=== PATIENT | female | born 1990 | race Caucasian/White ===

== ENCOUNTER → 2019-12-07 11:54 | Outpatient (CLI) | payer BC, MEDICAID, SELFPAY ==
[2019-12-07 12:19] LABS: Basophils % 0.4 % (0.1-2.0); Eosinophils # 0.2 K/mm3 (0.0-0.4); Eosinophils % 2.5 % (0.1-12.0); Hematocrit 34.6 % (37.0-47.0); Hemoglobin 10.3 g/dL (12.2-16.2); Lymphocytes # 2.1 K/mm3 (0.7-4.5); Lymphocytes % 34.7 % (10-50); Mean Corpuscular HGB Conc 29.9 g/dL (31.8-35.4); Mean Corpuscular Hemoglobin 24.2 pg (27.0-31.2); Mean Corpuscular Volume 80.9 fl (81-99); Mean Platelet Volume 6.8 fl (7.4-10.4); Monocytes # 0.3 K/mm3 (0.1-1.0); Monocytes % 5.3 % (1.7-9.3); Neutrophils # 3.5 K/mm3 (1.8-7.8); Platelet Count 410 K/mm3 (142-424); Red Blood Count 4.28 M/mm3 (4.20-5.40); Red Cell Distribution Width 18.2 % (11.5-17.5); White Blood Count 6.1 K/mm3 (4.8-10.8)
[2019-12-07 14:35] LABS: Coronavirus 19 IgG Antibody Positive (Negative); Coronavirus 19 IgM Antibody Negative (Negative)
[2019-12-07 15:24] LABS: Chloride 105 mmol/L (98-107); Urine Pregnancy, HCG Qual. Negative (Negative)
[2019-12-07 15:25] LABS: Potassium 4.4 mmoL/L (3.5-5.1); Sodium 139 mmol/L (136-145)
[2019-12-07 15:27] LABS: Alanine Aminotransferase 24 U/L (12-78); Alkaline Phosphatase 72 U/L (38-126); Aspartate Amino Transferase 30 U/L (14-36); Bilirubin,Total 0.3 mg/dl (0.2-1.3); Blood Urea Nitrogen 17 mg/dl (7-17); Estimated Glomerular Filt Rate 65 ml/min (>60); GFR (African American) 78 ML/MIN (>60)
[2019-12-07 15:28] LABS: Albumin Level 4.3 g/dl (3.5-5.0); Albumin/Globulin Ratio 1.5 (1.1-1.8); Calcium 9.6 mg/dl (8.4-10.2); Globulin 2.8 g/dL (1.3-3.2); Glucose 83 mg/dl (74-100); Total Protein,Serum 7.1 g/dl (6.3-8.2)
[2019-12-07 15:33] LABS: Amphetamine/Metha Screen,Urine Negative ng/ml (<1000); Benzodiazepines Screen,Urine Negative ng/ml (<200)
[2019-12-07 15:34] LABS: Barbiturates Screen,Urine Negative ng/ml (<200)
[2019-12-07 15:35] LABS: Cannabinoid Screen,Urine Negative ng/ml (<50)
[2019-12-07 15:36] LABS: Cocaine Screen,Urine Negative ng/ml (<300); Methadone Screen,Urine Negative ng/ml (<300)
[2019-12-07 15:37] LABS: Opiate Screen,Urine Negative ng/ml (<300)
[2019-12-07 15:38] LABS: Phencyclidine Screen,Urine Negative ng/ml (<25)
[2019-12-07 16:32] LABS: Anion Gap 11.4 mEq/L (5-15); Carbon Dioxide 27 mmol/L (22.0-30.0)
== END ==
PROVIDERS: Visit Provider Obstetrics & Gynecology
DX: Z01.818 Encounter for other preprocedural examination (principal)
CPT/HCPCS: 36415; 80053; 80305; 81025; 85025; 86328

== ENCOUNTER 2019-12-09 06:19 | Day surgery (SDC) | payer BC, MEDICAID, SELFPAY ==
[2019-12-07 15:47] VITALS: BMI 49.4
[2019-12-09] VITALS (13 sets, daily range): BP systolic 123–170; BP diastolic 71–89; PULSE 69–96; RESP 12–20; TEMP 36.4–43; O2SAT 92–97
--- NOTE | 2019-12-09 07:02 | P.PN_ITS ---
[facility] Anesthesia Checklist - Structural Data Admitted From: Home Planned Operative Procedure/s: lap btl Consent for Planned Operative Procedure(s) Verified: Yes - Airway Assessment C-Spine Mobility Assessed: Yes TMJ Mobility Assessed: Yes Dentition: Good Dentition - Neurological Assessment Level of Consciousness: Awake, Alert, Appropriate - Anesthesia Plan Anesthesia Risk discussed: Yes Anesthesia Plan: Verified ASA Class: II Anesthesia Type: General [facility] History I have reviewed the patient's past medical history: Yes Medical History: Denies:: Cancer, Diabetes Mellitus Type 1, Diabetes Mellitus Type 2, MRSA *Have you ever received a pneumonia vaccine?: No *Have you received a flu vaccine this season?: Yes Anesthesia experience/problems:: none Other Surgeries: Yes: Cholecystectomy Amputation: No Fractures: No - *Social History Smoking Status: Never smoker Alcohol Intake: never Substance Use Type: denies use *Occupational Status:: unemployed Housing: house *Travel in the last 8 weeks: None Family Hx:: No significant family history
--- NOTE | 2019-12-09 10:02 | P.PN_ITS ---
[facility] Anesthesia Record Part I Intake, IV Amount: 1,200 Estimated blood loss (mL): 0 Urine output (mL): 250 Blood Pressure: 170/86 SaO2: 95 Pulse Rate: 96 Respiratory Rate: 12 Temperature: 97.6 F Patient is:: Awake, Stable Stable to PACU at:: 10:00
--- NOTE | 2019-12-09 10:28 | P.OP_ITS ---
Date of procedure: 12/09/19 Pre-op Diagnosis:: 1. Undesired fertility 2. 5 wks 3. Morbid obesity Post-op Diagnosis:: same Procedure performed:: Attempted diagnostic laparoscopy, procedure aborted Surgeon:: Nazanin Rose MD LIQUEFACTION AND REGASIFICATION HELPER:: Kevin Ridley Anesthesia: GETA Estimated blood loss (mL): 5 Operative findings:: none Operative note:: The patient was taken to the operating room and general anesthesia was administered. She was prepped/draped in lithotomy position. A uterine manipulator was placed without difficulty. Gloves were changed and attention was turned to the abdomen. A 5mm skin incision was made in the umbilical fold and the Verees needle was inserted through the incision in standard fashion. Intra-peritoneal placement was not achieved with the long verees needle, however, and the abdomen could not be insufflated. Attempt was made at direct trocar placement without insufflating the abdomen first, however the regular 5mm trocar was not long enough to reach intra-abdominal placement. The skin incision was extended to accomodate a 12mm trocar and an XL 12 mm non-bladed trocar was opened. Attempt at direct placement of the trocar was unsuccessful, and intra-abdominal placement could not be achieved. The procedure was aborted at this point. The subcutaneous fat was closed with 2-0 vicryl. The skin incision was closed with 4-0 monocryl. The patient tolerated the procedure well. Sponge/lap/needle/instrument counts were correct at conclusion of procedure. She was taken out of lithotomy position and awakened from anesthesia, and was taken to the recovery room in stable condition. Condition: stable Disposition: PACU Complications:: none
--- NOTE | 2019-12-09 10:57 | PC.NURSE ---
1011-MD at bedside 1021-pt reports c/o nausea, medicated per eMAR w/Zofran 4mg IVP, cool washcloth applied to forehead 1030-pt reports pain is easing and nausea minimally easing, detailed report called to L.KingRN, pt transported to post op via stretcher w/jerson rails up, pt left in care of CASSANDRA Love and detailed report given at bedside, vss, pt stable
[2019-12-10 16:32] VITALS: BP 135/80; PULSE 74; TEMP 36.5
--- NOTE | 2019-12-10 16:32 | P.PN_ITS ---
[facility] Anesthesia Record Part II Discharge Time: 10:30 Destination: Surgical Day Care (OP Surgery) PACU nurse assessment reviewed?: Yes Patient Condition:: Good Anesthesia Complications:: None Swallowing reflex intact?: Yes Cyanosis?: No Blood Pressure: 135/80 Pulse Rate: 74 Temperature: 97.7 F Mental Status: Alert & Oriented Pain level:: 4 Nausea and/or vomitting:: None Intake, IV Amount: 0
== END 2019-12-09 11:56 | disposition home or self-care (01) ==
PROVIDERS: PCP Family Medicine; Visit Provider Obstetrics & Gynecology
PROC: 0UL74ZZ Occlusion of Bilateral Fallopian Tubes, Percutaneous Endoscopic Approach (ICD-10-PCS; CPT 58670; principal; 2019-12-09 08:00)
DX: Z30.2 Encounter for sterilization (principal); E66.01 Morbid (severe) obesity due to excess calories; Z68.42 Body mass index [BMI] 45.0-49.9, adult; Z83.3 Family history of diabetes mellitus; Z82.49 Family history of ischemic heart disease and other diseases of the circulatory system; Z83.438 Family history of other disorder of lipoprotein metabolism and other lipidemia; Z83.6 Family history of other diseases of the respiratory system; Z80.9 Family history of malignant neoplasm, unspecified; Z91.040 Latex allergy status
CPT/HCPCS: 58670; 96374; J2405; J2710

== ENCOUNTER → 2023-01-29 23:00 | Outpatient (CLI) | payer OTHER, SELFPAY ==
[2023-01-29 18:30] LABS: Basophils % 0.3 % (0.1-2.0); Eosinophils # 0.2 K/mm3 (0.0-0.4); Eosinophils % 2.2 % (0.1-12.0); Hematocrit 34.9 % (37.0-47.0); Hemoglobin 11.3 g/dL (12.2-16.2); Lymphocytes # 1.3 K/mm3 (0.7-4.5); Mean Corpuscular HGB Conc 32.3 g/dL (31.8-35.4); Mean Corpuscular Hemoglobin 27.9 pg (27.0-31.2); Mean Corpuscular Volume 86.5 fl (81-99); Mean Platelet Volume 8.5 fl (7.4-10.4); Monocytes # 0.5 K/mm3 (0.1-1.0); Monocytes % 7.4 % (1.7-9.3); Neutrophils # 4.8 K/mm3 (1.8-7.8); Platelet Count 353 K/mm3 (142-424); Red Blood Count 4.04 M/mm3 (4.20-5.40); Red Cell Distribution Width 14.5 % (11.5-17.5); White Blood Count 6.7 K/mm3 (4.8-10.8)
== END ==
PROVIDERS: PCP Family Medicine; Visit Provider Obstetrics & Gynecology
DX: N93.9 Abnormal uterine and vaginal bleeding, unspecified (principal); N92.0 Excessive and frequent menstruation with regular cycle; Z30.09 Encounter for other general counseling and advice on contraception
CPT/HCPCS: 85025

== ENCOUNTER 2023-03-14 14:21 | Outpatient (CLI) | payer OTHER, SELFPAY ==
[2023-03-14 14:47] LABS: Basophils % 0.6 % (0.1-2.0); Eosinophils # 0.2 K/mm3 (0.0-0.4); Hematocrit 36.2 % (37.0-47.0); Hemoglobin 11.9 g/dL (12.2-16.2); Lymphocytes # 2.2 K/mm3 (0.7-4.5); Lymphocytes % 39.3 % (10-50); Mean Corpuscular HGB Conc 32.9 g/dL (31.8-35.4); Mean Corpuscular Hemoglobin 27.5 pg (27.0-31.2); Mean Corpuscular Volume 83.6 fl (81-99); Monocytes # 0.4 K/mm3 (0.1-1.0); Monocytes % 7.2 % (1.7-9.3); Neutrophils # 2.8 K/mm3 (1.8-7.8); Neutrophils % 49.8 % (37.0-80.0); Platelet Count 334 K/mm3 (142-424); Red Blood Count 4.33 M/mm3 (4.20-5.40); Red Cell Distribution Width 15.5 % (11.5-17.5); White Blood Count 5.7 K/mm3 (4.8-10.8)
[2023-03-14 15:03] LABS: Chloride 107 mmol/L (98-107); Potassium 4.2 mmoL/L (3.5-5.1); Sodium 140 mmol/L (136-145)
[2023-03-14 15:06] LABS: Alanine Aminotransferase 21 U/L (12-78); Albumin Level 4.3 g/dl (3.5-5.0); Albumin/Globulin Ratio 1.6 (1.1-1.8); Alkaline Phosphatase 68 U/L (38-126); Anion Gap 12.2 mEq/L (5-15); Aspartate Amino Transferase 26 U/L (14-36); Bilirubin,Total 0.4 mg/dl (0.2-1.3); Blood Urea Nitrogen 12 mg/dl (7-17); Carbon Dioxide 25 mmol/L (22.0-30.0); Estimated Glomerular Filt Rate 114 ml/min (>60); GFR (African American) 138 ML/MIN (>60); Globulin 2.7 g/dL (1.3-3.2)
[2023-03-14 15:07] LABS: Calcium 8.6 mg/dl (8.4-10.2); Glucose 87 mg/dl (74-100)
[2023-03-14 15:24] LABS: HCG,Quantitative < 2 mIU/ml (0-5.42)
== END 2023-03-14 23:59 ==
LOC: LAB 14:21
PROVIDERS: PCP Family Medicine; Visit Provider Obstetrics & Gynecology
DX: N92.0 Excessive and frequent menstruation with regular cycle (principal)
CPT/HCPCS: 36415; 80053; 84702; 85025

== ENCOUNTER 2023-03-21 06:11 | Day surgery (SDC) | payer OTHER, SELFPAY ==
[2023-03-20 08:57] VITALS: BMI 33.5
[2023-03-21] VITALS (11 sets, daily range): BP systolic 109–130; BP diastolic 59–72; PULSE 68–88; RESP 12–18; TEMP 36.4–36.7; O2SAT 96–100
[2023-03-21] MEDS: LACTATED RINGERS 1000ML 1,000 ML 25 ML IV (06:46)
[2023-03-21] MEDS: LIDOCAINE 1% W/EPI 1:100,000 20ML VIAL 20 ML ×2 (07:50→08:34)
[2023-03-21] MEDS: MORPHINE 2MG/ML SYRINGE 1 MG IV ×2 (09:22→09:32)
--- NOTE | 2023-03-21 09:25 | EXP.ANES.CKL ---
[facility] Disclaimer: The information contained in this section may have been updated after the patient was seen, as this information can be updated by other users. Medical History Anemia Anxiety Asthma Surgical History H/O gastric bypass History of cholecystectomy Hx of section Family History Other Asthma Diabetes Social History (Updated 03/21/23 @ 06:32 by Verónica Peace RN) Smoking Status: Never smoker alcohol intake: never substance use type: denies use current occupational status: employed Travel in the last 8 weeks: None housing: house current occupational exposures/hazards: No [facility] Anesthesia Checklist Patient Identification Patient Identification: Arm Band and Family Structural Data Admitted From: Home Planned Operative Procedure/s: Lap bilateral salpingectomy. D & C. Hysteroscopy. Novasure. Consent for Planned Operative Procedure(s) Verified: Yes Verified Documents: History and Physical NPO Status Verified Time NPO: 00:00 Additional verifications Patient : No Anesthesia Reactions: Yes (VOMITING) Hx Blood Transfusions: No Blood Transfusion Reaction: No Cephalosporin Allergy: No Previous Colonoscopy: No Airway Assessment Mallampati Score:: Class I C-Spine Mobility Assessed: Yes TMJ Mobility Assessed: Yes Dentition: Good Dentition Neurological Assessment Level of Consciousness: Awake, Alert, Appropriate and Follows Commands Hx Seizures: No Numbness or tingling in extremities: No Anesthesia Plan Anesthesia Risk discussed: Yes ASA Class: II Anesthesia Type: General Preoperative Comments Pre-Operative Comments: PONV.
--- NOTE | 2023-03-21 09:28 | P.PNANES_ITS ---
[facility] Anest[facility] Record Part I Anesthesia Record I Intake, IV Amount: 850 Hydration: Adequate Estimated blood loss (mL): 10 Urine output (mL): 0 Blood Products used (#): none Blood Pressure: 120/72 SaO2: 100 Pulse Rate: 88 Airway Patency: Patent Respiratory Rate: 18 Temperature: 97.6 F Patient is:: Drowsy and Stable Stable to PACU at:: 09:10
--- NOTE | 2023-03-21 09:45 | EXP.OP.NOTE ---
Date of procedure: 03/21/23 Pre-op Diagnosis:: 1. Desires sterilization 2. Abnormal uterine bleeding 3. Menorrhagia 4. Endometriosis 5. Obesity, BMI: 34 Post-op Diagnosis:: 1. Desires sterilization 2. Abnormal uterine bleeding 3. Menorrhagia 4. Endometriosis 5. Obesity, BMI: 34 Procedure performed:: 1. Laparoscopic bilateral salpingectomy 2. Hysteroscopy, dilation and curettage 3. Endometrial ablation Surgeon:: Estefanía Duran DO Anesthesia: GETJenny Estimated blood loss (mL): 10 Operative findings:: 1. Bimanual examination nonrevealing secondary to habitus 2. Laparoscopic exam revealed normal-appearing uterus, ovaries, fallopian tubes and liver. There were no abdominal adhesions. There was 1 small adhesion from the anterior uterine wall to the pelvic sidewall. 3. Hysteroscopy revealed a diffusely proliferative endometrium Operative note:: Nighat Cruz is a 32yo presenting today for laparoscopic bilateral salpingectomy, hysteroscopy, dilation curettage, endometrial ablation, Pap smear. Will also do a diagnostic lap at this time to screen for endometriosis. The patient was taken to the operating room where general anesthesia was obtained and noted to be adequate. SCDs were placed for thromboembolism prophylaxis and found to be working. The patient was placed in the dorsal lithotomy position using yellowfin stirrups. Timeout verified the correct patient and procedure. The patient was prepped and draped in a usual sterile fashion. A catheter was used to drain her bladder. An acorn uterine manipulator was placed and my top gloves were removed. An OG tube was placed to decompress the stomach. 10mL of Lidocaine with epinepherine was injected at [place] and a scalpel was used to make a 5 mm incision with the assistance from a hemostat. The skin was tented and Optiview blunt trocar was introduced into the abdomen in the usual fashion. I was unable to gain abdominal access. Attention was turned to the infraumbilical area and my partner was called in for assistance. We attempted a cut down open mariaelena without success. One final attempt was given at [place]. On reevaluation it was felt that [place] was noted to be more accurately placed more medial to the prior site. A veress needle was inserted and abdominal access was obtained on the first try. A syringe was used to test the location and confirmed via aspiration free of blood or bowel contents and easy flow of saline. The Veress needle was attached to high flow gas and a pressure of 6 was then noted, again confirming entrance into the abdominal cavity. 4+L of CO2 were inserted creating a pneumoperitoneum. The Veress needle was removed and a 5mm trocar was placed at [facility]. The patient was placed in Trendelenburg. 10mLs of local anesthetic was injected and a 5mm incision was then made in the right lower quadrant with careful attention to avoid the rectus muscles and vasculature and under direct laparoscopic visualization an atraumatic grasper was introduced into the abdominal cavity. An 8 mm port was placed under direct laparoscopic visualization at the infraumbilical area. The fallopian tubes were identified on the cornu of the uterus and followed out to the ovaries which revealed grossly normal appearing anatomy. A grasper was used to elevate the right fallopian tube. The Ligasure was used to grasp the fimbriated end of the fallopian tube, ensuring complete removal of the fimbriae, it was clamped, coagulated and transected. This process was repeated serially working towards the uterus to allow complete removal of the fallopian tube. Careful attention was given to transected the Mesosalpinx proximal to the fallopian tube. The fallopian tube was removed from the abdominal cavity and passed off the operative field to be sent to pathology. Hemostasis was noted. Attention was then turned to the right fallopian tube and the process was repeated. Hemostasis was noted. There appeared to be a small lesion endometriosis in the posterior cul-de-sac immediately adjacent to the uterosacral ligaments. We are unable to reach this area safely with instruments. No biopsy was able to be obtained. Pneumoperitoneum reduced, and all ports removed. The 3 abdominal incisions were closed with 4-0 Monocryl. Dermabond was applied to each skin incision. Attention was turned vaginally. A weighted speculum was used to visualize this cervix, acorn uterine manipulator was removed. The cervix was dilated with Devon dilators to accommodate a 7mm Hysteroscope. A Telfa was placed in the vagina and a #3 sharp curette was used to curette the outer dhillon of the endometrium. Curettings collected on the Telfa and passed off the operative field to be sent to pathology for further evaluation. The hysterscope was inserted to the fundus, diffusely thick, proliferative fluffy endometrium was noted. Images were obtained of the cavity and each tubal ostia. The hysteroscope was removed with careful attention to note the cervical length, 4 cm. Uterine sound was used and the uterus was noted to sound to 8.5 cm. The Novasure device was opened, deployed, and noted to be functioning properly. The device was inserted to the fundus, set to a length of 4.5cm, and deployed to a width of 4.0cm. Cavity integrity was assessed and adequate. The ablation was started and a power of 99W was noted. Total ablation time was 0:55 seconds. The Novasure device was removed from the cervical os and the hysterscope was reinserted. The endometrium was noted to be successfully ablated and an image was obtained. All instruments were removed from the vagina. Hemostasis was noted at the tenaculum sites. All counts were correct, per nursing. This concluded the procedure, the pt was awakened from anesthesia and transferred to the PACU in stable condition. All counts were correct x2, per nursing. The patient was extubated, stable, and transferred to the PACU. She will be discharged after meeting all DC criteria to include voiding, ambulating and tolerating PO independently. Condition: stable Disposition: same day Specimens:: Bilateral fallopian tubes Endometrial curettings Complications:: None
--- NOTE | 2023-03-21 10:32 | EXP.ANES.CKL ---
[facility] Disclaimer: The information contained in this section may have been updated after the patient was seen, as this information can be updated by other users. Medical History Anemia Anxiety Asthma Surgical History H/O gastric bypass History of cholecystectomy Hx of section Family History (Reviewed 03/14/23 @ 13:36 by Flori Cha [facility]) Other Asthma Diabetes Social History (Updated 03/21/23 @ 06:32 by Verónica Peace RN) Smoking Status: Never smoker alcohol intake: never substance use type: denies use current occupational status: employed Travel in the last 8 weeks: None housing: house current occupational exposures/hazards: No [facility] Anesthesia Checklist Patient Identification Patient Identification: Arm Band and Family Structural Data Admitted From: Home Planned Operative Procedure/s: LEEP Consent for Planned Operative Procedure(s) Verified: Yes Verified Documents: Surgical Consent and History and Physical NPO Status Verified Time NPO: 00:00 Additional verifications Patient : No Anesthesia Reactions: No (VOMITING) Hx Blood Transfusions: No Blood Transfusion Reaction: No Cephalosporin Allergy: No Previous Colonoscopy: No Airway Assessment Mallampati Score:: Class III C-Spine Mobility Assessed: Yes TMJ Mobility Assessed: Yes Dentition: Good Dentition Neurological Assessment Level of Consciousness: Awake, Alert, Appropriate and Follows Commands Hx Seizures: No Numbness or tingling in extremities: No Anesthesia Plan Anesthesia Risk discussed: Yes ASA Class: II Anesthesia Type: General Preoperative Comments Pre-Operative Comments: 1028
--- NOTE | 2023-03-21 11:38 | P.PNANES_ITS ---
[facility] Anesthesia Record Part II Anesthesia Record Part II Discharge Time: 09:40 Destination: Surgical Day Care (OP Surgery) PACU nurse assessment reviewed?: Yes Patient Condition:: Good Anesthesia Complications:: None Swallowing reflex intact?: Yes Airway Patency: Patent Cyanosis?: No Blood Pressure: 120/67 SaO2: 96 Respiratory Rate: 16 Pulse Rate: 86 Temperature: 97.6 F Mental Status: Alert & Oriented Pain level:: 4 Nausea and/or vomitting:: None Intake, IV Amount: 0 Hydration: Adequate
== END 2023-03-21 11:15 | disposition home or self-care (01) ==
PROVIDERS: PCP Family Medicine; Visit Provider Obstetrics & Gynecology
PROC: (CPT 58661; principal; 2023-03-21 07:30)
PROC: (CPT 58661; 2023-03-21 07:30)
DX: Z30.2 Encounter for sterilization (principal); N93.9 Abnormal uterine and vaginal bleeding, unspecified; N92.0 Excessive and frequent menstruation with regular cycle; N80.329 Endometriosis of the posterior cul-de-sac, unspecified depth; E66.9 Obesity, unspecified; Z68.34 Body mass index [BMI] 34.0-34.9, adult
CPT/HCPCS: 58661; 58563; 96374; J3490; J2405